=== PATIENT | male | born 1935 | race Caucasian/White ===

== ENCOUNTER → 2016-07-11 | Outpatient (CLI) | payer MEDICARE, BC ==
[~2016-07-11] MED LIST: ASPI-496 PO; ATOR10TA PO; METH4TAB2 PO; METO25TA91 PO; METO50TA4 PO; NITR0.4T SL; REGADENOSON 0.4 MG/5 ML SYRINGE ONE; TICA90TA PO
== END | disposition home or self-care (01) ==
LOC: CFH 11:33
PROVIDERS: ATTEND Internal Medicine Cardiovascular Disease
DX: I08.0 Rheumatic disorders of both mitral and aortic valves (principal); I25.10 Atherosclerotic heart disease of native coronary artery without angina pectoris; I37.1 Nonrheumatic pulmonary valve insufficiency; I10 Essential (primary) hypertension; I45.10 Unspecified right bundle-branch block; I25.2 Old myocardial infarction; Z95.1 Presence of aortocoronary bypass graft; Z85.828 Personal history of other malignant neoplasm of skin
CPT/HCPCS: 78452; 93017; 93306; A9502; J2785